=== PATIENT | female | born 1940 | race Caucasian/White ===

== ENCOUNTER 2017-12-13 19:55 | Observation (INO) | payer MEDICARE, OTHER ==
[~2017-12-13] VITALS: Ht 167.6 cm; Wt 63.5 kg
[~2017-12-13 19:55] MED LIST: ASPI-621 PO; ATOR20TA PO; CLOP75TA52 PO; METO25TA35 PO
[2017-12-13] MEDS ORDERED: CEFDINIR 300 MG CAPSULE ONE (20:29)
[2017-12-13] MEDS ORDERED: CEFDINIR 300 MG CAPSULE PO ONE (20:30)
[2017-12-13 20:33] LABS: INTERNATIONAL NORMALIZED RATIO 1.01 (0.93-1.1); PROTHROMBIN TIME 10.4 Seconds (9.6-11.5)
[2017-12-13 20:36] LABS: ALANINE AMINOTRANSFERASE 25 U/L (12-78); ALBUMIN 3.5 g/dL (3.4-5.0); ANION GAP 8 mmol/L (5-15); CALCIUM 8.5 mg/dL (8.5-10.1); CHLORIDE 109 mmol/L (98-107); CREATININE 0.93 mg/dL (0.55-1.02)
[2017-12-13] MEDS ORDERED: [UNRECOGNIZED DRUG - CODE] PO (20:39)
[2017-12-13 20:40] LABS: BASOPHILS # (AUTO) 0.05 x10^3/uL (0-0.1); BASOPHILS % (AUTO) 1 % (0-1); EOSINOPHILS # (AUTO) 0.11 x10^3/uL (0-0.4); EOSINOPHILS % (AUTO) 2 % (1-7); LYMPHOCYTES # (AUTO) 2.22 x10^3/uL (1-3.4); LYMPHOCYTES % (AUTO) 43 % (22-44); MD NO; MEAN CORPUSCULAR HGB CONC 34.2 g/dL (32.4-35.8); MEAN CORPUSCULAR VOLUME 93.5 fL (80-100); MEAN PLATELET VOLUME 7.6 fL (7.4-10.4); MONOCYTES # (AUTO) 0.52 x10^3/uL (0.2-0.8); MONOCYTES % (AUTO) 10 % (2-9); NEUTROPHILS # (AUTO) 2.27 x10^3/uL (1.8-6.8); NEUTROPHILS % (AUTO) 44 % (42-75); PLATELET COUNT 299 x10^3/uL (130-400); RED BLOOD COUNT 4.37 x10^6/uL (3.82-5.3); RED CELL DISTRIBUTION WIDTH 12.7 % (9.6-15.2)
[2017-12-13 20:41] LABS: ALKALINE PHOSPHATASE 52 U/L (45-117); BILIRUBIN,TOTAL 0.3 mg/dL (0.2-1.0); TOTAL PROTEIN 7.3 g/dL (6.4-8.2); TROPONIN I 0.026 ng/mL (0.000-0.045)
[2017-12-13] MEDS ORDERED: SODIUM CHLORIDE 0.9% 1,000 ML IV ONE (20:56)
[2017-12-13] MEDS ORDERED: NITROGLYCERIN 0.4 MG BOTTLE (25 TABS) SL PRN ×2 (21:00→23:00)
[2017-12-13] MEDS ORDERED: POLYETHYLENE GLYCOL 17 GM PACKET PO PRN (21:00)
[2017-12-13] MEDS ORDERED: morphine SULFATE 10 MG/ML, 1ML IVPush PRN (21:00)
[2017-12-13] MEDS ORDERED: DOCUSATE 100 MG CAPSULE PO PRN (21:00)
[2017-12-13] MEDS ORDERED: ACETAMINOPHEN 325 MG TABLET PO PRN (21:00)
[2017-12-13] MEDS ORDERED: ONDANSETRON 2MG/ML, 2ML IVPush PRN (21:00)
[2017-12-13] MEDS ORDERED: PLEASE ENTER HEIGHT AND WEIGHT MC SCH (21:00)
[2017-12-13] MEDS ORDERED: ENOXAPARIN 40 MG/0.4 ML SQ SCH (21:00)
[2017-12-13] MEDS ORDERED: BISACODYL 10 MG SUPP PR PRN (21:00)
[2017-12-13] MEDS ORDERED: ENALAPRILAT 1.25 MG/ML, 2ML IVPush PRN (21:00)
[2017-12-13 21:23] VITALS: BP 145/75
[2017-12-13] MEDS ORDERED: DILT30TA33 PO (21:52)
[2017-12-13] MEDS ORDERED: METO50TA82 PO (21:52)
[2017-12-13] MEDS ORDERED: LUTE10TA2 PO (21:52)
[2017-12-13 22:30] VITALS: BP 145/77
[2017-12-13] MEDS: SODIUM CHLORIDE FLUSH 10ML SYR IVF SCH (23:15)
[2017-12-13 23:36] LABS: TROPONIN I 0.037 ng/mL (0.000-0.045)
[2017-12-14 04:11] VITALS: BP 97/60
[2017-12-14] MEDS ORDERED: TIMO5DRO33 EACHEYE (04:23)
[2017-12-14] MEDS ORDERED: LATA2.5D3 EACHEYE (04:23)
[2017-12-14 04:31] VITALS: BP 115/62
[2017-12-14 05:09] LABS: CHOLESTEROL, TOTAL 161 mg/dL (140-239); TRIGLYCERIDES 88 mg/dL (50-200); VLDL CHOLESTEROL 18 mg/dL (0-25)
[2017-12-14 05:13] LABS: CHOL/HDL RATIO 2.1; HDL CHOL % 47 % (28-40); HDL CHOLESTEROL (DIRECT) 76 mg/dL (40-60); LDL CHOLESTEROL,CALCULATED 67 mg/dL (54-169); LDL/HDL RATIO 0.9 (0.5-3.0); TROPONIN I 0.029 ng/mL (0.000-0.045)
[2017-12-14] MEDS ORDERED: ASPIRIN 325 MG TABLET EC PO SCH (06:00)
[2017-12-14] MEDS: SODIUM CHLORIDE FLUSH 10ML SYR IVF SCH (08:40)
[2017-12-14] MEDS ORDERED: REGADENOSON 0.4 MG/5 ML SYRINGE ONE (08:46)
[2017-12-14] MEDS ORDERED: CLOPIDOGREL 75 MG TABLET PO SCH (09:00)
[2017-12-14 12:50] VITALS: BP 137/72
[2017-12-14 14:34] VITALS: BP 117/71
[2017-12-14] MEDS ORDERED: ATORVASTATIN 20 MG TABLET PO SCH (21:00)
== END 2017-12-14 16:15 | disposition home or self-care (01) ==
LOC: ED 20:04 → EDIP 20:16 → INTOOBSV 20:16 → 5SO 21:24 → DCLOUNGE 12-14 16:05
PROVIDERS: ADMIT Hospitalist; ATTEND Hospitalist
DX: R07.89 Other chest pain (principal); R00.1 Bradycardia, unspecified; E86.0 Dehydration; F12.90 Cannabis use, unspecified, uncomplicated; H35.30 Unspecified macular degeneration; I11.9 Hypertensive heart disease without heart failure; I25.10 Atherosclerotic heart disease of native coronary artery without angina pectoris; I51.81 Takotsubo syndrome; N39.0 Urinary tract infection, site not specified; Z85.51 Personal history of malignant neoplasm of bladder; Z87.891 Personal history of nicotine dependence
CPT/HCPCS: 36415; 78452; 80053; 80061; 83735; 84484; 85025; 85610; 93005; 93017; 96372; 99285; A9502; C9898; G0378; J1650; J2785; J7030